=== PATIENT | female | born 1990 | race Asian ===

== ENCOUNTER 2024-10-17 07:34 | Inpatient (IN) | payer MEDICAID, SELFPAY ==
[2024-10-17 08:06] VITALS: BMI 26.5
[2024-10-17] MEDS ORDERED: hydrALAZINE 20 MG/ML VIAL SLOW IVP PRN ×3 (08:08→15:43)
[2024-10-17] MEDS ORDERED: Ondansetron PF 4 MG/2 ML Vial IVP PRN ×3 (09:16→15:43)
[2024-10-17] MEDS ORDERED: Carboprost 250 MCG/ML AMP IM PRN (09:16)
[2024-10-17] MEDS ORDERED: Methylergonovine 0.2 MG/ML VIAL IM PRN (09:16)
[2024-10-17] MEDS ORDERED: Ibuprofen 800 MG TAB PO PRN (09:16)
[2024-10-17] MEDS ORDERED: Lidocaine 1% (PF) 30 ML VIAL SC PRN (09:16)
[2024-10-17] MEDS ORDERED: Diphenoxylate HCl/Atropine Tablet PO PRN (09:16)
[2024-10-17] MEDS ORDERED: Misoprostol 200 MCG TAB PR PRN (09:16)
[2024-10-17] MEDS ORDERED: Promethazine HCl 25 MG/ML VIAL IM PRN ×3 (09:16→15:43)
[2024-10-17] MEDS ORDERED: Oxytocin 30 units/NS 500 ML 500 ML IV SCH (09:30)
[2024-10-17 10:41] LABS: Hematocrit 37.4 % (34.9-44.5); Hemoglobin 11.8 g/dL (12.0-15.5); Mean Corpuscular HGB CONC 31.6 g/dL (32.0-36.0); Mean Corpuscular Hemoglobin 22.8 pg (27.0-33.0); Mean Corpuscular Volume 72.3 fL (81.6-98.3); Mean Platelet Volume 9.8 fL (7.4-10.4); Platelet Count 250 10x3/uL (150-450); RBC Distribution Width 15.1 % (11.5-14.5); Red Blood Cell (RBC) Count 5.17 10x6/uL (3.90-5.03); White Blood Cell (WBC) Count 7.32 10x3/uL (3.5-10.5)
[2024-10-17] MEDS: Oxytocin 30 units/NS 500 ML 500 ML IV SCH (11:12)
[2024-10-17] MEDS: Lactated Ringer's 1,000 ML IV SCH (11:12)
[2024-10-17] MEDS: fentaNYL/Ropivacaine Epidural 100 ML ONE (11:16)
[2024-10-17 11:20] LABS: Syphilis Antibody Nonreactive (Nonreactive)
[2024-10-17 11:22] LABS: HBsAg Index 0.22 S/CO (0-0.99); HIV (1/2) Antibody/Antigen Non-Reactive (NonReactive); HIV 1/2 INDEX 0.13 S/CO (<1.00); Hep B Surf Ag - L&D Non-Reactive S/CO (NonReactive)
[2024-10-17] MEDS ORDERED: Lactated Ringer's 500 ML IV PRN (11:35)
[2024-10-17] MEDS ORDERED: ePHEDrine Sulfate 50 MG/10 ML VIAL SLOW IVP PRN (11:35)
[2024-10-17] MEDS ORDERED: Naloxone HCl 0.4 mg/ml Vial IVP PRN ×2 (11:35)
[2024-10-17] MEDS ORDERED: Moisturizing Cream (Eucerin) 113 GM JAR TOP PRN (11:35)
[2024-10-17] MEDS ORDERED: fentaNYL 2 mcg/Ropivacaine 0.2% Epidural 100 ML CADD EPIDURAL SCH (11:45)
[2024-10-17] MEDS ORDERED: Communication Order-Pharmacy FS SCH (11:45)
[2024-10-17] MEDS ORDERED: Milk Of Magnesia 30 ML UDCUP PO PRN (15:43)
[2024-10-17] MEDS ORDERED: Boostrix 0.5 ML (Tdap) VIAL (>/=7 yrs of age) IM ONE (15:43)
[2024-10-17] MEDS ORDERED: Bisacodyl 10 MG SUPP PR PRN (15:43)
[2024-10-17] MEDS ORDERED: Lanolin Ointment 7 GM TUBE TOP PRN (15:43)
[2024-10-17] MEDS: Ferrous Sulfate 325 MG TAB PO SCH (19:20)
[2024-10-17] MEDS: Ibuprofen 800 MG TAB PO SCH (21:55)
[2024-10-17] MEDS: diphenhydrAMINE 50 MG/ML VIAL IVP PRN (21:55)
[2024-10-17] MEDS: Docusate 100 MG CAP PO SCH (21:55)
[2024-10-18] MEDS: HYDROcodone/Acetaminophen 5/325 mg Tablet PO SCH (00:15)
[2024-10-18] MEDS ORDERED: Bupivacaine/Epinephrine 0.25% 30 ML VIAL ONE (08:00)
[2024-10-18] MEDS: Prenatal Vitamin 1 TAB PO SCH (08:32)
[2024-10-18] MEDS: Acetaminophen 325 MG TAB PO PRN (08:32)
[2024-10-18] MEDS: Melatonin 3 MG TAB PO SCH (21:35)
[2024-10-19 16:46] VITALS: BP 113/68; TEMP 97.7
== END 2024-10-19 14:43 | disposition home or self-care (01) | DRG 807 ==
LOC: CSHLD/OP 07:34 → CSHLD 09:35 → CSHPP 18:30
PROVIDERS: ADMIT Family Medicine; ATTEND Family Medicine
PROC: 10E0XZZ Delivery of Products of Conception, External Approach (ICD-10-PCS; principal; 2024-10-17)
PROC: 0KQM0ZZ Repair Perineum Muscle, Open Approach (ICD-10-PCS; 2024-10-17)
DX: O24.429 Gestational diabetes mellitus in childbirth, unspecified control (principal); Z37.0 Single live birth; Z3A.38 38 weeks gestation of pregnancy; O34.211 Maternal care for low transverse scar from previous cesarean delivery; O99.02 Anemia complicating childbirth; O70.1 Second degree perineal laceration during delivery
CPT/HCPCS: 36416; 51702; 82951; 85027; 86780; 86850; 86900; 86901; 87340; 87389; 99285; J1200; J2590; J7120